=== PATIENT | female | born 1940 | race American Indian/Alaskan Native ===

== ENCOUNTER 2018-04-24 09:49 | Observation (INO) | payer MEDICARE ==
[2018-04-24] MEDS ORDERED: NACL 0.9% 1 ML, VANCOMYCIN VIAL 1,000 MG IR ONE (10:18)
[2018-04-24 10:55] LABS: Basophils # (Auto) 0.1 K/mm3 (0.0-0.1); Eosinophils % (Auto) 0.8 % (0.0-4.3); Hematocrit 40.1 % (30.3-42.9); Lymphocytes # (Auto) 2.5 K/mm3 (1.2-5.4); Lymphocytes % (Auto) 42.2 % (13.4-35.0); Mean Corpuscular HGB Conc 32 % (30-34); Mean Corpuscular Hemoglobin 29 pg (28-32); Mean Corpuscular Volume 90 fl (79-97); Monocytes # (Auto) 0.6 K/mm3 (0.0-0.8); Monocytes % (Auto) 9.6 % (0.0-7.3); Platelet Count 162 K/mm3 (140-440); Red Blood Count 4.46 M/mm3 (3.65-5.03); Red Cell Distribution Width 14.3 % (13.2-15.2)
--- NOTE | 2018-04-24 10:59 | Anesthesia Day of Surgery ---
Anesthesia Day of Surgery - Day of Surgery Patient Examined: Yes Patient H&P Reviewed: Yes Patient is NPO: Yes Beta Blockers: No
[2018-04-24] MEDS ORDERED: VANCOMYCIN/NS 1 GM/250 ML 1 GM/250 ML BAG IV NR (11:00)
[2018-04-24] MEDS ORDERED: NACL 0.45% 1000 ML 1,000 ML IV SCH (11:00)
--- NOTE | 2018-04-24 11:01 | Anesthesia Consultation ---
Anesthesia Consult and Med Hx Date of service: 04/24/18 - Airway Anesthetic Teeth Evaluation: Good ROM Head & Neck: Adequate Mental/Hyoid Distance: Adequate Mallampati Class: Class III Intubation Access Assessment: Possibly Difficult - Pulmonary Exam CTA: Yes - Pre-Operative Health Status ASA Pre-Surgery Classification: ASA3 Proposed Anesthetic Plan: MAC - Pulmonary Hx Smoking: No Hx Asthma: No Hx Respiratory Symptoms: No SOB: No COPD: No Home Oxygen Therapy: No Hx Pneumonia: No Hx Sleep Apnea: No - Cardiovascular System Hx Hypertension: Yes Hx Coronary Artery Disease: No Hx Heart Attack/AMI: No Hx Angina: No Hx Percutaneous Transluminal Coronary Angioplasty (PTCA): No Hx Cardia Arrhythmia: No Hx Pacemaker: No Hx Internal Defibrillator: No Hx Valvular Heart Disease: No Hx Heart Murmur: No Hx Peripheral Vascular Disease: No - Central Nervous System Hx Neuromuscular Disorder: No Hx Seizures: No CVA: Yes Hx Back Pain: No Hx Psychiatric Problems: No - Gastrointestinal Hx Ulcer: No Hx Gastroesophageal Reflux Disease: No - Endocrine Hx Renal Disease: No Hx End Stage Renal Disease: No Hx Cirrhosis: No Hx Liver Disease: No Hx Insulin Dependent Diabetes: No Hx Non-Insulin Dependent Diabetes: No Hx Thyroid Disease: No Hx Hypothyroidism: No Hx Hyperthyroidism: No - Hematic Hx Anemia: No Hx Sickle Cell Disease: No - Other Systems Hx Alcohol Use: No Hx Substance Use: No Hx Cancer: No Hx Obesity: Yes
[2018-04-24 11:10] LABS: INR 1.03 (0.87-1.13)
[2018-04-24 11:11] LABS: Partial Thromboplastin Time 29.7 Sec. (24.2-36.6)
[2018-04-24] MEDS ORDERED: DIPRIVAN 10 MG/ML IV ONE ×2 (11:28→11:34)
[2018-04-24] MEDS ORDERED: XYLOCAINE MPF 2% ONE (11:30)
[2018-04-24] MEDS ORDERED: ZOFRAN ONE (11:30)
[2018-04-24] MEDS ORDERED: VERSED ONE (11:31)
[2018-04-24] MEDS ORDERED: DILAUDID ONE (11:33)
[2018-04-24] MEDS ORDERED: XYLOCAINE 1% 20 mL ONE (12:20)
[2018-04-24] MEDS ORDERED: NACL 0.9% 500 ML IR ONE (12:20)
[2018-04-24] MEDS ORDERED: MARCAINE 0.5% INFILTRATI ONE (12:20)
[2018-04-24 12:26] LABS: BUN/Creatinine Ratio 22; Blood Urea Nitrogen 20 mg/dL (7-17); Calcium 9.2 mg/dL (8.4-10.2); Hemolysis Index 5
--- NOTE | 2018-04-24 14:48 | Short Stay Summary ---
<LATHA CANDELARIA - Last Filed: 04/24/18 15:09> Short Stay Documentation Date of service: 04/24/18 - History H&P: obtained from office - Allergies and Medications Current Medications: Allergies Latex, Natural Rubber Allergy (Verified 04/24/18 10:28) Rash Penicillins Allergy (Verified 04/24/18 10:28) Swelling WILLIE Inhibitors Adverse Reaction (Verified 04/24/18 10:28) cough lisinopril Adverse Reaction (Verified 04/24/18 10:28) cough metformin Adverse Reaction (Verified 04/24/18 10:28) hair fell out Home Medications Medication Instructions Recorded Confirmed Last Taken Type Atorvastatin Calcium 80 mg PO QHS 04/24/18 04/24/18 04/23/18 History 80mg Citalopram Hydrobromide 20 mg PO DAILY 04/24/18 04/24/18 04/23/18 History [Citalopram HBr] 20mg Insulin Glargine,Hum.rec.anlog 10 units SC QPM 04/24/18 04/24/18 04/23/18 History [Lantus Solostar] 10units Insulin NPH Hum/Reg Insulin Hm 30 units SC DAILY 04/24/18 04/24/18 04/23/18 History [Humulin 70-30 Vial] 30units Losartan Potassium 25 mg PO DAILY 04/24/18 04/24/18 04/23/18 History 25mg Metoprolol [Lopressor TAB] 25 mg PO DAILY 04/24/18 04/24/18 04/23/18 History 25mg Omeprazole 40 mg PO DAILY 04/24/18 04/24/18 04/23/18 History 40mg Rivaroxaban [Xarelto] 20 mg PO DAILY 04/24/18 04/24/18 04/21/18 History 20mg Sitagliptin Phosphate [Januvia] 50 mg PO DAILY 04/24/18 04/24/18 04/23/18 History 50mg Active Medications Sodium Chloride (Nacl 0.45% 1000 Ml) 1,000 mls @ 50 mls/hr IV DIRECT IVONE Last Admin: 04/24/18 11:25 Dose: 50 mls/hr Vancomycin HCl (Vancomycin/Ns 1 Gm/250 Ml) 1 gm in 250 mls @ 166.667 mls/hr IV PREOP NR; Protocol Stop: 04/24/18 23:00 Last Admin: 04/24/18 12:03 Dose: 166.667 mls/hr - Brief post op/procedure progress note Date of procedure: 04/24/18 Pre-op diagnosis: sick sinus syndrome Post-op diagnosis: same Procedure: PPM implantation - see dictated operative report Anesthesia: local Estimated blood loss: none Condition: stable - Disposition Condition at discharge: Stable Disposition: DC-01 TO HOME OR SELFCARE - Discharge Diagnoses (1) Sick sinus syndrome Status: Chronic (2) Cardiac pacemaker in situ Status: Chronic (3) HTN (hypertension) Status: Chronic (4) Diabetes Status: Chronic (5) CAD (coronary artery disease) Status: Chronic (6) History of pulmonary embolism Status: Chronic Short Stay Discharge Plan Activity: advance as tolerated Diet: low fat, low cholesterol, low salt Wound: per your surgeon's advice Additional Instructions: Resume Xarelto on 04/28/2018 Follow up with: PHUONG ESCOBAR MD [Primary Care Provider] - 7 Days MARY BRYAN MD [Staff Physician] - 7 Days (Follow up in [place] office for inision check on 05/06/2018 @ 8:30AM) <MARY BRYAN - Last Filed: 04/24/18 16:42> Short Stay Documentation - Allergies and Medications Current Medications: Allergies Latex, Natural Rubber Allergy (Verified 04/24/18 10:28) Rash Penicillins Allergy (Verified 04/24/18 10:28) Swelling WILLIE Inhibitors Adverse Reaction (Verified 04/24/18 10:28) cough lisinopril Adverse Reaction (Verified 04/24/18 10:28) cough metformin Adverse Reaction (Verified 04/24/18 10:28) hair fell out Home Medications Medication Instructions Recorded Confirmed Last Taken Type Atorvastatin Calcium 80 mg PO QHS 04/24/18 04/24/18 04/23/18 History 80mg Citalopram Hydrobromide 20 mg PO DAILY 04/24/18 04/24/18 04/23/18 History [Citalopram HBr] 20mg Insulin Glargine,Hum.rec.anlog 10 units SC QPM 04/24/18 04/24/18 04/23/18 History [Lantus Solostar] 10units Insulin NPH Hum/Reg Insulin Hm 30 units SC DAILY 04/24/18 04/24/18 04/23/18 History [Humulin 70-30 Vial] 30units Losartan Potassium 25 mg PO DAILY 04/24/18 04/24/18 04/23/18 History 25mg Metoprolol [Lopressor TAB] 25 mg PO DAILY 04/24/18 04/24/18 04/23/18 History 25mg Omeprazole 40 mg PO DAILY 04/24/18 04/24/18 04/23/18 History 40mg Rivaroxaban [Xarelto] 20 mg PO DAILY 04/24/18 04/24/18 04/21/18 History 20mg Sitagliptin Phosphate [Januvia] 50 mg PO DAILY 04/24/18 04/24/18 04/23/18 History 50mg Active Medications Sodium Chloride (Nacl 0.45% 1000 Ml) 1,000 mls @ 50 mls/hr IV DIRECT IVONE Last Admin: 04/24/18 11:25 Dose: 50 mls/hr Vancomycin HCl (Vancomycin/Ns 1 Gm/250 Ml) 1 gm in 250 mls @ 166.667 mls/hr IV PREOP NR; Protocol Stop: 04/24/18 23:00 Last Admin: 04/24/18 12:03 Dose: 166.667 mls/hr Vancomycin HCl (Vancomycin/Ns 1 Gm/250 Ml) 1 gm in 250 mls @ 167.007 mls/hr IV ONCE IVONE; Protocol Losartan Potassium (Cozaar) 25 mg PO DAILY IVONE Metoprolol Tartrate (Lopressor) 25 mg PO DAILY IVONE
[2018-04-24] MEDS: MOTRIN PO PRN (23:18)
[2018-04-25] MEDS ORDERED: VANCOMYCIN/NS 1 GM/250 ML 1 GM/250 ML BAG IV SCH (00:30)
[2018-04-25] MEDS: MOTRIN PO PRN (07:30)
[2018-04-25 08:53] VITALS: BP 161/55
[2018-04-25] MEDS ORDERED: COZAAR PO SCH (10:00)
[2018-04-25] MEDS ORDERED: LOPRESSOR PO SCH (10:00)
--- NOTE | 2018-04-25 11:19 | Progress Note ---
Assessment and Plan interrogation [facility] site c/d/i no sxs clinically stable for dc may dc if cxr unremarkable Subjective Date of service: 04/25/18 Interval history: no complaints feels well Objective Vital Signs Temp Pulse Pulse Resp Resp BP BP 04/25/18 08:36 97.7 F 56 L 18 161/55 04/25/18 07:30 17 04/25/18 05:06 98.6 F 55 L 18 144/63 04/25/18 04:25 55 L 144/63 04/25/18 00:18 17 04/24/18 23:57 98 F 55 L 18 166/68 04/24/18 23:18 17 04/24/18 22:00 55 L 17 04/24/18 20:49 55 L 04/24/18 20:14 17 04/24/18 20:02 97.7 F 54 L 20 165/76 04/24/18 19:38 56 L 165/76 04/24/18 16:10 97.3 F L 55 L 20 159/69 04/24/18 15:30 56 L 15 164/59 04/24/18 15:00 55 L 18 149/65 04/24/18 14:45 97.8 F 55 L 17 134/55 Pulse Ox 04/25/18 08:36 94 04/25/18 07:30 04/25/18 05:06 96 04/25/18 04:25 96 04/25/18 00:18 04/24/18 23:57 99 04/24/18 23:18 04/24/18 22:00 04/24/18 20:49 04/24/18 20:14 04/24/18 20:02 96 04/24/18 19:38 95 04/24/18 16:10 94 04/24/18 15:30 90 04/24/18 15:00 90 04/24/18 14:45 94 - Labs and Meds Comprehensive Metabolic Panel 04/24/18 Range/Units 11:47 Sodium 144 (137-145) mmol/L Potassium 4.4 (3.6-5.0) mmol/L Chloride 105.8 (98-107) mmol/L Carbon Dioxide 27 (22-30) mmol/L BUN 20 H (7-17) mg/dL Creatinine 0.9 (0.7-1.2) mg/dL Glucose 138 H (65-100) mg/dL Calcium 9.2 (8.4-10.2) mg/dL
--- NOTE | 2018-04-25 13:03 | XRay Report ---
FINAL REPORT EXAM: XR CHEST 1V AP HISTORY: to check pacemaker TECHNIQUE: Frontal chest radiograph. PRIORS: None. FINDINGS: A left chest pacemaker is seen. The pacer leads appear intact. Aortic calculi are seen. There appears to be mild central pulmonary vascular congestion. A calcified right upper lobe granuloma is seen. No focal consolidation. No pleural effusion. No pneumothorax. No acute osseous abnormality. IMPRESSION: No acute cardiopulmonary process. Intact left chest pacemaker leads.
== END 2018-04-25 16:26 | disposition home or self-care (01) ==
LOC: CATHLABREC 09:49 → 4A 13:10
PROVIDERS: ADMIT Internal Medicine Cardiovascular Disease; ATTEND Internal Medicine Cardiovascular Disease
DX: I49.5 Sick sinus syndrome (principal)
CPT/HCPCS: 33208; 36415; 71045; 80048; 82962; 85025; 85610; 85730; 93005; 93010; 96365; 96366; C1769; C1779; C1785; C1892; G0378; J1170; J2250; J2405; J2704; J3370; Q9967